=== PATIENT | female | born 2000 | race Caucasian/White ===

== ENCOUNTER 2023-03-31 04:29 | Emergency (ER) | payer BC, OTHER ==
--- OUTSIDE RECORDS SUMMARY | 2023-03-31 04:32 | XMS REPORT | Continuity of Care Document ---
:2000 Author Organization [facility] t Address [address] [place] [address] Care Team Providers Name Role Phone PCP, PATIENT DOES NOT HAVE A Primary Care Physician Unavaila Juan Bennett Attending Clinician Unavailable Amita Weinstein MD Attending Clinician AMITA WEINSTEIN Attending Clinician Unavailable Doctor Unassigned, Zuehl Attending Clinician Unavailable Payers Payer Name Policy Type Policy Number Effective Date Expiration Date S steve [employer] 6 [id number] 2018 [facility] t [employer] of 00:00:00 - [facility] Problems Condition Condition Condition Status Onset Resolution Last Treating Co mments Source Name Details Category Date Date Treatment Clinician Date Hx of Hx of Disease Active 2020-05 Univers menorrhagi menorrhagi 2-15 it y of a a 00:00: [address] Branch Presence Presence Disease Active 2020-05 Unive rs of 52 mg of 52 mg 2-15 ity of [place] t[place]rele[place]rel-relea 00 Me dical sing sing Branch intrauteri intrauteri ne device ne device (IUD) (IUD) [id number] Attention Problem Comm on deficit Spirit hyperactiv - [facility] type [id number] Generalize Problem Com mon d anxiety Spirit disorder - [facility] [id number] Swollen Problem Commo n tonsil Spirit - [facility] Allergies, Adverse Reactions, Alerts Allergy Allergy Status Severity Reaction(s) Onset Inactive Treating Comm ents Source Name Type Date Date Clinician AMOXICIL DRUG Active Low Rash Univers ANA-POT 06-27 ity of CLAVULAN 00:00: [place] ATE 00 Medical Branch Amoxicil Propensi Active Rash Was a Univer s ana-Pot ty to 06-27 young ity of Clavulan adverse 00:00: child [place] ate reaction 00 Medical s to Branch drug amoxicil amoxicil Active Unknown Commo n ana / ana / Spirit clavulan clavulan - [facility] ate ate [facility] Social History Social Habit Start Date Stop Date Quantity Comments Source History of Current Smoker [facility] Spi rit - Tobacco Use [facility] Sex Assigned At Common Sp jazzy - [facility] Exposure to Not sure University of SARS-CoV-2 [place] [facility] (event) Branch History SDOH University o f Alcohol Frequency [place] [facility] History SDOH University o f Alcohol Std [place] [facility] Drinks [facility] History SDIN University o f Alcohol Binge [place] [facility] Alcohol intake 2021-04-22 2021-04-22 Current drinker Unive rsity of 00:00:00 00:00:00 of alcohol [place] [facility] (finding) Branch Tobacco use and 2021-04-17 2021-04-17 Never used Universit y of exposure 00:00:00 00:00:00 [facility] Alcohol Comment 2021-04-17 2021-04-17 Monthly / Social Uni versity of 00:00:00 00:00:00 [facility] Smoking Status Start Date Stop Date Source Current Smoker 2023-03-04 00:00:00 [facility] t - [facility] Former smoker 2021-04-17 00:00:00 2021-04-17 00:00:00 Universi ty [facility] Medications Ordered Filled Start Stop Current Ordering Indication Dosage Frequency Signature Comments Components Source Medication Medication Date Date Medication? Clinician (SIG) Name Name Adderall XR Adderall XR 2022-05 No 1{capsu QD Adderall 15 MG 15 MG 1-15 le_in_t XR 15 MG 00:00: he_morn 00 ing} Adderall XR Adderall XR 2022-0 No 1{capsu QD Adderall 15 MG 15 MG 3-02 le_in_t XR 15 MG 00:00: he_morn 00 ing} Adderall XR Adderall XR 3-0 No 1{capsu QD Adderall 15 MG 15 MG 2-02 le_in_t XR 15 MG 00:00: he_morn 00 ing} Adderall XR Adderall XR 2021-1 No 1{capsu QD Adderall 15 MG 15 MG 0-13 le_in_t XR 15 MG 00:00: he_morn 00 ing} Adderall XR Adderall XR 2021-0 No 1{capsu QD Adderall 15 MG 15 MG 9-14 le_in_t XR 15 MG 00:00: he_morn 00 ing} Adderall XR Adderall XR 2021-0 No 1{capsu QD Adderall 15 MG 15 MG 8-20 le_in_t XR 15 MG 00:00: he_morn 00 ing} Adderall XR Adderall XR 2-0 No 1{capsu QD Adderall 15 MG 15 MG 7-13 le_in_t XR 15 MG 00:00: he_morn 00 ing} Adderall XR Adderall XR 2-0 No 1{capsu QD Adderall 15 MG 15 MG 6-07 le_in_t XR 15 MG 00:00: he_morn 00 ing} Adderall XR Adderall XR 2-0 No 1{capsu QD Adderall 15 MG 15 MG 6-07 le_in_t XR 15 MG 00:00: he_morn 00 ing} Adderall XR Adderall XR 2-0 No 1{capsu QD Adderall 15 MG 15 MG 6-07 le_in_t XR 15 MG 00:00: he_morn 00 ing} Adderall XR Adderall XR 2-0 No 1{capsu QD Adderall 15 MG 15 MG 6-07 le_in_t XR 15 MG 00:00: he_morn 00 ing} Adderall XR Adderall XR No 1{capsu QD Adderall 15 MG 15 MG 4-20 le_in_t XR 15 MG 00:00: he_morn 00 ing} Adderall XR Adderall XR No 1{capsu QD Adderall 15 MG 15 MG 4-20 le_in_t XR 15 MG 00:00: he_morn 00 ing} Adderall XR Adderall XR No 1{capsu QD Adderall 15 MG 15 MG 3-20 le_in_t XR 15 MG 00:00: he_morn 00 ing} Adderall XR Adderall XR No 1{capsu QD Adderall 15 MG 15 MG 2-11 le_in_t XR 15 MG 00:00: he_morn 00 ing} Adderall XR Adderall XR No 1{capsu QD Adderall 15 MG 15 MG 1-12 le_in_t XR 15 MG 00:00: he_morn 00 ing} Lamotrigine 2020-05- No Take by Un jason (LAMICTAL 2-10 12-10 mouth. ity of ODT) 100 mg 14:50: 00:00 [place] TbDL 27 :00 Medical Branch ESCITALOPRA 2020-05- No Take by Un jason M OXALATE 2-10 12-10 mouth. ity of (LEXAPRO 14:50: 00:00 [place] ORAL) 14 :00 Medical Branch Adderall XR Adderall XR 2020-05 No 1{capsu QD 10 MG 10 MG 2-03 le_in_t 00:00: he_morn 00 ing} Adderall XR Adderall XR 2020-05 No 1{capsu QD 10 MG 10 MG 1-03 le_in_t 00:00: he_morn 00 ing} ADDERALL XR 2020-05 Yes Univer s 10 mg 24 hr 1-03 ity of capsule 00:00: [place] 00 Medical Branch JUNE2020- No Univers 1.5/30, 21, 2-22 12-10 ity of 1.5-30 00:00: 00:00 [place] mg-mcg per 00 :00 Medical tablet Branch Melatonin Melatonin No 1{table QD Melatonin 10 MG 10 MG t_at_be 10 MG dtime_a s_neede d} Melatonin Melatonin No 1{table QD Melatonin 10 MG 10 MG t_at_be 10 MG dtime_a s_neede d} Melatonin Melatonin No 1{table QD Melatonin 10 MG 10 MG t_at_be 10 MG dtime_a s_neede d} Melatonin Melatonin No 1{table QD Melatonin 10 MG 10 MG t_at_be 10 MG dtime_a s_neede d} Melatonin Melatonin No 1{table QD 10 MG 10 MG t_at_be dtime_a s_neede d} Melatonin Melatonin No 1{table QD Melatonin 10 MG 10 MG t_at_be 10 MG dtime_a s_neede d} Melatonin Melatonin No 1{table QD Melatonin 10 MG 10 MG t_at_be 10 MG dtime_a s_neede d} Adderall XR Adderall XR No 1{capsu QD Adderall 15 MG 15 MG le_in_t XR 15 MG he_morn ing} Melatonin Melatonin No 1{table QD Melatonin 10 MG 10 MG t_at_be 10 MG dtime_a s_neede d} Vital Signs Vital Name Observation Time Observation Value Comments Source height 2022-09-15 11:10:00 67 [in_i] [facility] weight 2022-09-15 11:10:00 135 [lb_av] [facility] temperature 2022-09-15 11:10:00 97.8 [degF] [facility] bmi 2022-09-15 11:10:00 21.14 kg/m2 [facility] blood pressure 2022-09-15 11:10:00 126 mm[Hg] [facility] - systolic [facility] blood pressure 2022-09-15 11:10:00 84 mm[Hg] [facility] - diastolic [facility] height 2022-06-10 11:20:00 67 [in_i] [facility] weight 2022-06-10 11:20:00 130 [lb_av] [facility] bmi 2022-06-10 11:20:00 20.36 kg/m2 Common S pirit - [facility] blood pressure 2022-06-10 11:20:00 125 mm[Hg] [facility] - systolic [facility] blood pressure 2022-06-10 11:20:00 72 mm[Hg] [facility] - diastolic [facility] height 2022-01-20 08:00:00 67 [in_i] Common S pirit - [facility] weight 2022-01-20 08:00:00 130 [lb_av] [facility] S p[facility] - [facility] temperature 2022-01-20 08:00:00 98 [degF] Common S pirit - [facility] bmi 2022-01-20 08:00:00 20.36 kg/m2 Common S pirit - [facility] blood pressure 2022-01-20 08:00:00 128 mm[Hg] [facility] - systolic [facility] blood pressure 2022-01-20 08:00:00 78 mm[Hg] [facility] - diastolic [facility] height 2021-11-18 07:50:00 67 [in_i] Common S pirit - [facility] weight 2021-11-18 07:50:00 140 [lb_av] Common S pirit - [facility] temperature 2021-11-18 07:50:00 98 [degF] Common S pirit - [facility] bmi 2021-11-18 07:50:00 21.92 kg/m2 Common S pirit - [facility] blood pressure 2021-11-18 07:50:00 116 mm[Hg] [facility] - systolic [facility] blood pressure 2021-11-18 07:50:00 88 mm[Hg] [facility] - diastolic [facility] height 2021-10-13 13:30:00 67 [in_i] Common S pirit - [facility] weight 2021-10-13 13:30:00 139.2 [lb_av] [facility] - [facility] temperature 2021-10-13 13:30:00 99.0 [degF] Common S pirit [facility] bmi 2021-10-13 13:30:00 21.8 kg/m2 [facility] oximetry 2021-10-13 13:30:00 99 % Common S pirit [facility] respiratory rate 2021-10-13 13:30:00 18 /min Comm on Spirit - [facility] blood pressure 2021-10-13 13:30:00 114 mm[Hg] [facility] - systolic [facility] blood pressure 2021-10-13 13:30:00 75 mm[Hg] [facility] - diastolic [facility] height 2021-07-15 08:50:00 67 [in_i] [facility] weight 2021-07-15 08:50:00 135 [lb_av] [facility] temperature 2021-07-15 08:50:00 98 [degF] Common S pirit [facility] bmi 2021-07-15 08:50:00 21.14 kg/m2 Common S pirit [facility] blood pressure 2021-07-15 08:50:00 115 mm[Hg] [facility] - systolic [facility] blood pressure 2021-07-15 08:50:00 76 mm[Hg] [facility] - diastolic [facility] height 2021-05-12 14:50:00 67 [in_i] Common S pirit [facility] weight 2021-05-12 14:50:00 135 [lb_av] Common S pirit [facility] temperature 2021-05-12 14:50:00 98.8 [degF] Common S pirit [facility] bmi 2021-05-12 14:50:00 21.14 kg/m2 [facility] blood pressure 2021-05-12 14:50:00 118 mm[Hg] [facility] - systolic [facility] blood pressure 2021-05-12 14:50:00 79 mm[Hg] [facility] - diastolic [facility] Systolic blood 2021-04-17 20:45:00 119 mm[Hg] Univer sity of [facility] Diastolic blood 2021-04-17 20:45:00 78 mm[Hg] Unive rsity of [facility] Heart rate 2021-04-17 20:45:00 105 /min [facility] Body temperature 2021-04-17 20:45:00 36.72 Stephanie [facility] Res[facility] rate 2021-04-17 20:45:00 18 /min [facility] Body height 2021-04-17 20:45:00 170.2 cm [facility] Body weight 2021-04-17 20:45:00 61.236 kg [facility] BMI 2021-04-17 20:45:00 21.14 kg/m2 [facility] height 2021-03-11 14:40:00 67 [in_i] [facility] weight 2021-03-11 14:40:00 140 [lb_av] [facility] temperature 2021-03-11 14:40:00 97.9 [degF] [facility] bmi 2021-03-11 14:40:00 21.92 kg/m2 [facility] blood pressure 2021-03-11 14:40:00 118 mm[Hg] [facility] blood pressure 2021-03-11 14:40:00 86 mm[Hg] [facility] - diastolic [facility] Procedures Procedure Date / Time Performed Performing Clinician [facility] e PAP SMEAR-LIQUID 2021-04-17 21:30:00 Amita Weinstein [facility] Encounters Start End Encounter Admission Attending Care Care Encounter Source Date/Time Date/Time Type Type Clinicians Facility Department ID 2022-06-09 Outpatient CHARLOTTE [place] [facility] [id number] Common 13:09:00 Juan [id number] [facility] 2021-09-15 Outpatient CHARL[place]TE [place] [facility] [id number] Common 09:27:02 [facility] 2021-06-03 Outpatient [place], STLMLC STLMLC [id number] Common 13:33:52 Juan [facility] 2021-06-03 Outpatient [place], STLMLC STLMLC [id number] Common 12:53:17 Juan [id number] [facility] 2021-06-03 Outpatient [place], STLMLC STLMLC [id number] Common 12:23:27 Juan [id number] [facility] 2022-09-15 2022-09-15 OFFICE STLMLC STLMLC [id number] Co mmon 00:00:00 00:00:00 VISIT Spirit ESTAB PT - CHI LEVEL 3 [facility] 2022-06-10 2022-06-10 OFFICE STLMLC STLMLC [id number] Co mmon 00:00:00 00:00:00 VISIT Spirit ESTAB PT - CHI LEVEL 3 [facility] 2022-01-20 2022-01-20 OFFICE STLMLC STLMLC [id number] Co mmon 00:00:00 00:00:00 VISIT EST Spir it PT LEVEL 3 - [facility] 2021-11-18 2021-11-18 OFFICE STLMLC STLMLC [id number] Co mmon 00:00:00 00:00:00 VISIT EST Spir it PT LEVEL 3 - [facility] 2021-10-13 2021-10-13 PREV VISIT STLMLC STLMLC [id number] Common 00:00:00 00:00:00 EST AGE Spirit 18-39 - [facility] 2021-07-15 2021-07-15 OFFICE STLMLC STLMLC [id number] Co mmon 00:00:00 00:00:00 VISIT EST Spir it PT LEVEL 3 - [facility] 2021-05-12 2021-05-12 OFFICE STLMLC STLMLC [id number] Co mmon 00:00:00 00:00:00 VISIT Spirit ESTAB PT - CH[facility] LEVEL 4 [facility] 2021-04-17 2021-04-17 Office Amita Weinstein [facility] [id number] [facility] 14:30:00 15:29:24 Visit DANITZA [id number] i [id number] Mt dical [address] 2021-04-17 2021-04-17 Outpatient AMITA [facility] [id number] Univers 14:30:00 15:29:24 ity [facility] 2021-04-17 2021-04-17 Outpatient AMITA [facility] [id number] Univers 14:30:00 15:29:24 ity [facility] 2021-04-17 2021-04-17 Orders Doctor LANG [id number] Univers 00:00:00 00:00:00 Only Unassigned, MANUJ [id number] [facility] 4.2.7.2.686 [place] as [id number] [address] 2021-03-24 2021-03-24 Outpatient AMITA [facility] [id number] Univers 14:15:00 14:15:00 ity [facility] 2021-03-11 2021-03-11 OFFICE STLMLC STLMLC [id number] Co mmon 00:00:00 00:00:00 VISIT EST Spir it PT LEVEL 3 - [facility] 2020-12-10 2020-12-10 Outpatient STLMLC STLMLC [id number] Common 00:00:00 00:00:00 [facility] 2020-09-24 2020-09-24 Outpatient STLMLC STLMLC [id number] Common 00:00:00 00:00:00 [facility] 2020-08-25 2020-08-25 Outpatient STLMLC STLMLC [id number] Common 00:00:00 00:00:00 [facility] 2020-06-27 2020-06-27 Outpatient STLMLC STLMLC [id number] Common 00:00:00 00:00:00 [facility] 2020-05-28 2020-05-28 Outpatient STLMLC STLMLC [id number] Common 00:00:00 00:00:00 [facility] - [facility] Results Test Description Test Time Test Comments Results Result Comments Source Lipid Panel With LDL/HDL Ratio 2021-10-13 00:00:00 Test Item Value Reference Range Interpretation Comme nts Cholesterol, Total (test code 127 mg/dL See_Comment [Automated message] The system = 3-3) which generated this result transmitted ref erence range: 100-199 mg/dL. The reference range was not u sed to interpret this result as normal/abnormal. Triglycerides (test code = 40 mg/dL See_Comment [Automated message] The system 859-8) which generated this result transmitted ref erence range: 0-149 mg/dL. Th e reference range was not used to interpret this result as sourav l/abnormal. HDL Cholesterol (test code = 59 mg/dL See_Comment [Automated message] The system 2085-01) which generated this result transmitted ref erence range: >39 mg/dL. The refe rence range was not used to int erpret this result as sourav l/abnormal. UA/M w/rflx Culture, [id number] 00:00:00 Test Item Value Reference Range Interpretation Comments Specific [place] (test 1.016 1.005-1.030 code = 2965-2) pH (test code = 7.0 5.0-7.5 5803-2) Urine-Color (test code Yellow Yellow = 5778-6) Appearance (test code Clear Clear = 5767-9) WBC Esterase (test Negative Negative code = 5799-2) Protein (test code = Negative Negative/Trace 34263-7) Glucose (test code = Negative Negative 2349-9) Ketones (test code = Negative Negative 2514-8) Occult Blood (test Negative Negative code = 5794-3) Bilirubin (test code = Negative Negative 5770-3) Urobilinogen,Semi-Qn 0.2 mg/dL See_Comment [Autom ated message] (test code = 63034-0) The sy stem which generated this result transmitted ref erence range: 0.2-1.0 mg/dL. The reference r frank was not used to interpret this result as normal/abnor mal. Nitrite, Urine (test Negative Negative code = 5802-4) Microscopic See below: Examination (test code = 42524-5) Urinalysis Reflex (test code = UNLOINC) Hemoglobin [id number] 00:00:00 Test Item Value Reference Range Interpretation Comments Hemoglobin A1c (test 4.9 % See_Comment [Autom ated message] The code = 4548-4) system which generated this result tra nsmitted reference range : 4.8-5.6 %. The referenc e range was not used to interpret this result as normal/abnormal . Comp. Metabolic Panel (14) ([facility])2021-10-13 00:00:00 Test Item Value Reference Range Interpretation Comments Glucose (test code = 88 mg/dL See_Comment [Autom ated message] 8515-7) The system [employer] generated this result transmitted ref erence range: 65-99 mg /dL. The reference r frank was not used to interpret this result as normal/abnor mal. BUN (test code = 11 mg/dL See_Comment [Automated message] 3094-0) The system [employer] generated this result transmitted ref erence range: 6-20 mg/ dL. The reference r frank was not used to interpret this result as normal/abnor mal. Creatinine (test code 0.77 mg/dL See_Comment [Auto mated message] = 2160-0) The system [employer] generated this result transmitted ref erence range: 0.57-1.0 0 mg/dL. The refe rence range was not u sed to interpret this result as normal/abnor mal. BUN/Creatinine Ratio 14 9-23 (test code = 3097-3) Sodium (test code = 139 mmol/L See_Comment [Automa glo message] 5681-2) The system [employer] generated this result transmitted ref erence range: 134-144 mmol/L. The ref erence range was not u sed to interpret this result as normal/abnor mal. Potassium (test code = 4.7 mmol/L See_Comment [Aut omated message] 2753-3) The system [employer] generated this result transmitted ref erence range: 3.5-5.2 mmol/L. The ref erence range was not u sed to interpret this result as normal/abnor mal. Chloride (test code = 103 mmol/L See_Comment [Auto mated message] ) The system [facility] generated this result transmitted ref erence range: 96-106 m mol/L. The reference r frank was not used to interpret this result as normal/abnor mal. Carbon Dioxide, Total 22 mmol/L See_Comment [Auto mated message] (test code = 2028-01) The s tem which generated this result transmitted ref erence range: 20-29 mm ol/L. The reference r frank was not used to interpret this result as normal/abnor mal. Calcium (test code = 10.2 mg/dL See_Comment [Autom ated message] 44697-9) The system [facility] generated this result transmitted ref erence range: 8.7-10.2 mg/dL. The refe rence range was not u sed to interpret this result as normal/abnor mal. Protein, Total (test 7.1 g/dL See_Comment [Autom ated message] code = 2455-2) The system [facility] generated this result transmitted ref erence range: 6.0-8.5 g/dL. The reference r frank was not used to interpret this result as normal/abnor mal. Albumin (test code = 4.8 g/dL See_Comment [Autom ated message] 1751-7) The system [facility] generated this result transmitted ref erence range: 3.9-5.0 g/dL. The reference r frank was not used to interpret this result as normal/abnor mal. Globulin, Total (test 2.3 g/dL See_Comment [Auto mated message] code = 48872-9) The system [facility] generated this result transmitted ref erence range: 1.5-4.5 g/dL. The reference r frank was not used to interpret this result as normal/abnor mal. A/G Ratio (test code = 2.1 1.2-2.2 9-0) Bilirubin, Total (test 0.5 mg/dL See_Comment [Aut omated message] code = 1974-) The system [facility] generated this result transmitted ref erence range: 0.0-1.2 mg/dL. The reference r frank was not used to interpret this result as normal/abnor mal. Alkaline Phosphatase 43 IU/L See_Comment L [Autom ated message] (test code = 6768-6) The sys tem which generated this result transmitted ref erence range: 44-121 I U/L. The reference r frank was not used to interpret this result as normal/abnor mal. AST (SGOT) (test code 13 IU/L See_Comment [Auto mated message] = 1920-8) The system [facility] generated this result transmitted ref erence range: 0-40 IU/ L. The reference range was not used to int erpret this result as normal/abnormal . ALT (SGPT) (test code 11 IU/L See_Comment [Auto mated message] = 1742-6) The system whic h generated this result transmitted ref erence range: 0-32 IU/ L. The reference range was not used to int erpret this result as normal/abnormal . Uric Acid, [id number] 00:00:00 Test Item Value Reference Range Interpretation Comments Uric Acid (test 4.2 mg/dL See_Comment [Automated message] The code = 3084-1) system which generated this result tra nsmitted reference range : 2.6-6.2 mg/dL. The refe rence range was not u sed to interpret this result as normal/abnormal . CBC With Differential/[id number] 00:00:00 Test Item Value Reference Range Interpretation Comments WBC (test code = 8.4 x10E3/uL See_Comment [Automated 0490-2) message] The sy stem which generated this result transmitted reference range : 3.4-10.8 x10E3/ uL. The reference r frank was not used to interpret this result as normal/abnormal . RBC (test code = 4.64 x10E6/uL See_Comment [Automate d 789-8) message] The sy stem which generated this result transmitted reference range : 3.77-5.28 x10E6 /uL. The reference r frank was not used to interpret this result as normal/abnormal . Hemoglobin (test code 13.7 g/dL See_Comment [Auto mated = 958-7) message] The sy stem which generated this result transmitted reference range : 11.1-15.9 g/dL. The reference range was not used to interpret this result as normal/abnormal . Hematocrit (test code 41.1 % See_Comment [Auto mated = 4544-3) message] The sy stem which generated this result transmitted reference range : 34.0-46.6 %. Th e reference range was not used to interpret this result as normal/abnormal . MCV (test code = 89 fL See_Comment [Automated 787-2) message] The sy stem which generated this result transmitted reference range : 79-97 fL. The reference range was not used to interpret this result as normal/abnormal . MCH (test code = 29.5 pg See_Comment [Automated 785-6) message] The sy stem which generated this result transmitted reference range : 26.6-33.0 pg. T he reference range was not used to interpret this result as normal/abnormal . MCHC (test code = 33.3 g/dL See_Comment [Automate d 786-4) message] The sy stem which generated this result transmitted reference range : 31.5-35.7 g/dL. The reference range was not used to interpret this result as normal/abnormal . RDW (test code = 11.5 % See_Comment L [Automated 788-0) message] The sy stem which generated this result transmitted reference range : 11.7-15.4 %. Th e reference range was not used to interpret this result as normal/abnormal . Platelets (test code 253 x10E3/uL See_Comment [Autom ated = 777-3) message] The sy stem which generated this result transmitted reference range : 150-450 x10E3/u L. The reference r frank was not used to interpret this result as normal/abnormal . Neutrophils (test 54 % Not Estab. % code = 770-8) Lymphs (test code = 32 % Not Estab. % 736-9) Monocytes (test code 7 % Not Estab. % = 5905-5) Eos (test code = 6 % Not Estab. % 713-8) Basos (test code = 1 % Not Estab. % 706-2) Immature Cells (test code = UNLOINC) Neutrophils 4.5 x10E3/uL See_Comment [Automated (Absolute) (test code messag e] The system = 751-8) which generated this result transmitted reference range : 1.4-7.0 x10E3/u L. The reference r frank was not used to interpret this result as normal/abnormal . Lymphs (Absolute) 2.7 x10E3/uL See_Comment [Automate d (test code = 731-0) message] The system which generated this result transmitted reference range : 0.7-3.1 x10E3/u L. The reference r frank was not used to interpret this result as normal/abnormal . Monocytes(Absolute) 0.6 x10E3/uL See_Comment [Automa glo (test code = 742-7) message] The system which generated this result transmitted reference range : 0.1-0.9 x10E3/u L. The reference r frank was not used to interpret this result as normal/abnormal . Eos (Absolute) (test 0.5 x10E3/uL See_Comment H [Autom ated code = 711-2) message] The s ystem which generated this result transmitted reference range : 0.0-0.4 x10E3/u L. The reference r frank was not used to interpret this result as normal/abnormal . Baso (Absolute) (test 0.1 x10E3/uL See_Comment [Auto mated code = 704-7) message] The s ystem which generated this result transmitted reference range : 0.0-0.2 x10E3/u L. The reference r frank was not used to interpret this result as normal/abnormal . Immature Granulocytes 0 % Not Estab. % (test code = 49818-9) Immature Grans (Abs) 0.0 x10E3/uL See_Comment [Autom ated (test code = 94064-8) messag e] The system which generated this result transmitted reference range : 0.0-0.1 x10E3/u L. The reference r frank was not used to interpret this result as normal/abnormal . NRBC (test code = 51573-1) Hematology Comments: (test code = 87667-7) TSH reflex to [id number] 00:00:00 Test Item Value Reference Range Interpretation Comments TSH (test code = 0.756 uIU/mL See_Comment [Automated message] The 24608-4) system which ge nerated this result tra nsmitted reference range : 0.450-4.500 uIU /mL. The reference range was not used to interpr et this result as normal/abnormal .
--- NOTE | 2023-03-31 04:43 | ER ---
Nurse's Notes [facility] Name: Shobha Reaves Age: 22 yrs Sex: Female : 2000 Arrival Date: 03/31/2023 Time: 04:29 Bed Waiting Private MD: Diagnosis: Contact with and (suspected) exposure to meningococcus Presentation: 03/31 04:41 Chief complaint: Patient states: EXPOSURE TO PT WITH MENINGITIS. Coronavirus screen: At rv this time, the client does not indicate any symptoms associated with coronavirus-19. Ebola Screen: No symptoms or risks identified at this time. Initial Sepsis Screen: Does the patient meet any 2 criteria? No. Patient's initial sepsis screen is negative. Does the patient have a suspected source of infection? No. Patient's initial sepsis screen is negative. Risk Assessment: Do you want to hurt yourself or someone else? Patient reports no desire to harm self or others. Onset of symptoms was March 31, 2023. 04:41 Method Of Arrival: Ambulatory rv 04:41 Acuity: TRISHA 5 rv Triage Assessment: 04:41 General: Appears in no apparent distress. Behavior is calm, cooperative. Pain: Denies rv pain. Neuro: Level of Consciousness is awake, alert, obeys commands, Oriented to person, place, time, situation. Cardiovascular: Capillary refill < 3 seconds Patient's skin is warm and dry. Respiratory: Airway is patent Respiratory effort is even, unlabored. GI: No signs and/or symptoms were reported involving the gastrointestinal system. : No signs and/or symptoms were reported regarding the genitourinary system. Historical: - Allergies: 04:41 No Known Allergies; rv - PMHx: 04:41 None; rv - PSHx: 04:41 None; rv - Immunization history:: Adult Immunizations. - Social history:: Smoking status: Patient denies any tobacco usage or history of. - Family history:: not pertinent. Screenin:42 [facility] ED Fall Risk Assessment (Adult) History of falling in the last 3 months, rv including since admission No falls in past 3 months (0 pts) Score/Fall Risk Level 0 - 2 = Low Risk Oriented to surroundings, Maintained a safe environment, Educated pt \T\ family on fall prevention, incl call for assistance when getting out of bed. Abuse screen: Denies threats or abuse. Denies injuries from another. Nutritional screening: No deficits noted. Tuberculosis screening: No symptoms or risk factors identified. Vital Signs: 04:41 Pulse 88; Resp 18; Temp 98; Pulse Ox 99% ; rv ED Course: 04:35 Patient arrived in ED. rv 04:38 Sal Love MD is Attending Physician. sp4 04:41 Triage completed. rv 04:42 Arm band placed on right wrist. rv 04:42 No provider procedures requiring assistance completed. Patient did not have IV access rv during this emergency room visit. Administered Medications: 04:49 Drug: Ciprofloxacin PO 1 grams PO once Route: PO; rv 04:49 Follow up: Response: Medication administered at discharge. rv Medication: 04:42 VIS not applicable for this client. rv Outcome: 04:42 Discharge ordered by . sp4 04:43 Discharged to home ambulatory, rv 04:43 Condition: good 04:43 Discharge instructions given to patient, Instructed on discharge instructions, follow up and referral plans. Demonstrated understanding of instructions, follow-up care, 04:50 Patient left the ED. rv Signatures: Zan Londono, RN RN rv Sal Love MD MD sp4
--- NOTE | 2023-03-31 04:43 | EDPHYS ---
Physician Documentation [facility] Name: Shobha Reaves Age: 22 yrs Sex: Female : 2000 Arrival Date: 03/31/2023 Time: 04:29 Bed Waiting Private MD: ED Physician Sal Love HPI: 03/31 04:38 This 22 yrs old Female presents to ER via Unassigned with complaints of sp4 Exposure to patient with meningitis . 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 Patient desires prophylactic medication for meningitis. Historical: - Allergies: 04:41 No Known Allergies; rv - PMHx: 04:41 None; rv - PSHx: 04:41 None; rv - Immunization history:: Adult Immunizations. - Social history:: Smoking status: Patient denies any tobacco usage or history of. - Family history:: not pertinent. ROS: 04:38 Constitutional: Negative for fever, chills, and weight loss, sp4 04:38 All other systems are negative, Exam: 04:38 Constitutional: This is a well developed, well nourished patient who is awake, alert, sp4 and in no acute distress. Head/Face: Normocephalic, atraumatic. Eyes: Pupils equal round and reactive to light, extra-ocular motions intact. Lids and lashes normal. Conjunctiva and sclera are not injected. Cornea within normal limits. Periorbital areas with no swelling, redness, or edema. ENT: Nares patent. No nasal discharge, no septal abnormalities noted. Tympanic membranes are normal and external auditory canals are clear. Oropharynx with no redness, swelling, or masses, exudates, or evidence of obstruction, uvula midline. Mucous membranes moist. Neck: Trachea midline, no thyromegaly or masses palpated, and no cervical lymphadenopathy. Supple, full range of motion without nuchal rigidity, or vertebral point tenderness. Chest/axilla: Normal chest wall appearance and motion. Nontender with no deformity. No lesions are appreciated. Cardiovascular: Regular rate and rhythm with a normal S1 and S2. No gallops, murmurs, or rubs. Normal PMI, no JVD. No pulse deficits. Respiratory: Lungs have equal breath sounds bilaterally, clear to auscultation and percussion. No rales, rhonchi or wheezes noted. No increased work of breathing, no retractions or nasal flaring. Abdomen/GI: Soft, non-tender, with normal bowel sounds. No distension or tympany. No guarding or rebound. No evidence of tenderness throughout. Back: No spinal tenderness. No costovertebral tenderness. Skin: Warm, dry with normal turgor. Normal color with no rashes, no lesions, and no evidence of cellulitis. MS/ Extremity: Pulses equal, no cyanosis. Neurovascular intact. Full, normal range of motion. Neuro: Awake and alert, GCS 15, oriented to person, place, time, and situation. Cranial nerves II-XII grossly intact. Motor strength 5/5 in all extremities. Sensory grossly intact. Psych: Awake, alert, with orientation to person, place and time. Behavior, mood, and affect are within normal limits Vital Signs: 04:41 Pulse 88; Resp 18; Temp 98; Pulse Ox 99% ; rv MDM: 04:41 Patient medically screened. sp4 04:41 Differential Diagnosis altered mental status, sepsis, flu. Data reviewed: vital signs, sp4 nurses notes. ED course: Patient will be given 1 g ciprofloxacin p.o. for prophylaxis. No further intervention required based on CDC guideline. Administered Medications: 04:49 Drug: Ciprofloxacin PO 1 grams PO once Route: PO; rv 04:49 Follow up: Response: Medication administered at discharge. rv Disposition Summary: 03/31/23 04:42 Discharge Ordered Notes: Location: Home sp4 Problem: new sp4 Symptoms: have improved sp4 Condition: Stable sp4 Diagnosis - Contact with and (suspected) exposure to meningococcus sp4 Followup: sp4 - With: Private Physician - When: 7 - 10 days - Reason: Recheck today's complaints Discharge Instructions: - Discharge Summary Sheet sp4 - Contact Precautions, [id number] sp4 Forms: - Patient Portal Instructions sp4 Signatures: Zan Londono RN RN rv Sal Love MD MD sp4
[2023-03-31] MEDS ORDERED: CIPROFLOXACIN HCL 500 MG TAB ONE (04:58)
[2023-03-31 04:59] VITALS: TEMP 98; O2SAT 99
== END 2023-03-31 04:50 | disposition home or self-care (01) ==
LOC: ER 04:29
DX: Z20.811 Contact with and (suspected) exposure to meningococcus (principal)
CPT/HCPCS: 99283

== ENCOUNTER 2024-09-18 12:06 | Emergency (ER) | payer OTHER ==
--- OUTSIDE RECORDS SUMMARY | 2024-09-18 12:10 | XMS REPORT | Continuity of Care Document ---
Author Name Unknown Address [address] [facility] [place] [address] [facility] Address [address] [facility] [address] [place] [address] Care Team Providers Care Directory Assistance Operator Name Role Phone Pcp, Patient Does Not Have A Primary Care Physic tray Juan Israel Attending Clinician Unavailable ESTEBAN HENDERSON Attending Clinician Unavailable ESTEBAN HENDERSON Attending Clinician Unavailable IZABELLA HAYES Attending Clinician Unavailable Izabella Hayes NP Attending Clinician [phone] Esteban Henderson MD Attending Clinician Nurse, [facility] Attending Clinician Un available Amita Weinstein MD Attending Clinician [phone] AMITA WEINSTEIN Attending Clinician Unavailable Doctor Unassigned, Ingenio Attending Clinician U navailable Payers Payer Name Policy Type Policy Number Effective Date Expirati on Date Source [employer] [place] [id number] 2022 00:00:00 [employer] [facility] 6 [id number] 2022 00:00:00 [facility] Problems Condition Name Condition Details Condition Category Status Onset Date Resolution Date Last Treatment Date Treating Clinician Comments Source Hx of menorrhagi a Hx of menorrhagi a Disease Active 2020-05 00:00: 00 [facility] Presence of 52 mg levonorges trel-relea sing intrauteri ne device (IUD) Presence of 52 mg levonorges trel-relea sing intrauteri ne device (IUD) Disease Active 2020-05 00:00: 00 [facility] [id number] Attention deficit hyperactiv ity disorder (ADHD), combined type Problem [facility] [id number] Generalize d anxiety disorder Problem [facility] [id number] Overweight Problem Com [facility] [id number] Swollen tonsil Problem [facility] Allergies, Adverse Reactions, Alerts Allergy Name Allergy Type Status Severity Reaction(s) Onset Date Inactive Date Treating Clinician Comments Source Amoxicil ana-Pot Clavulan ate Drug Allergy Active Unknown - See comments 06-27 00:00: 00 Was a young child [facility] AMOXICIL ANA-POT CLAVULAN ATE DRUG Active Low Rash 06-27 00:00: 00 [facility] Amoxicil ana-Pot Clavulan ate Propensi ty to adverse reaction s to drug Active Rash 06-27 00:00: 00 Was a young child [facility] Social History Social Habit Start Date Stop Date Quantity Comments Source Sex Assigned At [facility] Exposure to SARS-CoV-2 (event) Not sure [facility] ASSERTION Not [facility] History SDOH Alcohol Frequency [facility] History SDOH Alcohol Std Drinks [facility] History SDOH Alcohol Binge [facility] Alcoholic beverage intake 2024-08-22 00:00:00 2024-08-22 00:00:00 Current drinker of alcohol (finding) [facility] History of Social function 2024-07-25 00:00:00 2024-07-25 00:00:00 [facility] Tobacco use and exposure 2024-07-12 00:00:00 2024-07-12 00:00:00 Smokeless tobacco non-user [facility] Alcohol intake 2021-04-22 00:00:00 2021-04-22 00:00:00 Current drinker of alcohol (finding) [facility] Alcohol Comment 2021-04-17 00:00:00 2021-04-17 00:00:00 Monthly / Social [facility] History of tobacco use 2019-08-22 00:00:00 Cigarette Smoker [facility] Smoking Status Start Date Stop Date Source Ex-smoker 2024-07-12 00:00:00 2024-07-12 00[facility]00[facility] Current Smoker 2023-12-23 00:00:00 [facility] Medications Ordered Medication Name Filled Medication Name Start Date Stop Date Current Medication? Ordering Clinician Indication Dosage Frequency Signature (SIG) Comments Components Source Adderall XR 15 MG Adderall XR 15 MG 09-17 00:00: 00 No 1{олегu le_in_t he_morn ing} QD Adderall XR 15 MG levonorgest reL (MIRENA) IUD 1 Device 07-25 21:30: 00 07-25 20:41 :00 No [id number] 1{devic e} 1 Device, Intrauteri ne, ONCE, 1 dose, On Tue07/25/24 at 1630, Routine [facility] amphetamine -dextroamph etamine 15 mg 24 hr capsule 07-25 15:00: 23 Yes TAKE 1 CAPSULE BY MOUTH DAILY IN THE MORNING [facility] miSOPROStoL 200 mcg tablet 07-12 00:00: 00 07-25 00:00 :00 No [id number] 200ug Take 1 tablet by mouth SEE-INSTRU CTIONS. Take one tab the night before and one tab the morning of procedure [facility] Lamotrigine (LAMICTAL ODT) 100 mg TbDL 2020-05 14:50: 27 04-17 00:00 :00 No Take by mouth. [facility] ESCITALOPRA M OXALATE (LEXAPRO ORAL) 2020-05 14:50: 14 04-17 00:00 :00 No Take by mouth. [facility] ADDERALL XR 10 mg 24 hr capsule 2020-05 00:00: 00 07-12 00:00 :00 No 15mg Take 15 mg by mouth in the morning. [facility] JUNEL 1.5/, 21, 1.5-30 mg-mcg per tablet 06-30 00:00: 00 04-17 00:00 :00 No [facility] Immunizations Ordered Immunization Name Filled Immunization Name Date Status Comments Source HPV9 2024-08-13 00:00:00 Completed [facility] HPV9 2024-07-12 00:00:00 Completed [facility] SARS-COV-2 COVID-19 MODERNA 12+ YRS VACCINE 2021-04-11 00:00:00 Completed SARS-COV-2 COVID-19 MODERNA VACCINE 2021-04-11 00:00:00 Completed [facility] SARS-COV-2 COVID-19 MODERNA 12+ YRS VACCINE 2020-12-08 00:00:00 Completed [facility] SARS-COV-2 COVID-19 MODERNA VACCINE 2020-12-08 00:00:00 Completed [facility] Meningococcal Polysaccharide (groups A, C, Y and W-135) conjugate vaccine (MCV4P) 2009-10-22 00:00:00 Completed [facility] TDAP 2009-10-22 00:00:00 Completed Meningococcal Polysaccharide (groups A, C, Y and W-135) conjugate vaccine (MCV4P) 2009-10-22 00:00:00 Completed [facility] TDAP 2009-10-22 00:00:00 Completed [facility] Varicella (varivax)(chicken pox) 2009-06-18 00:00:00 Completed Varicella (varivax)(chicken pox) 2009-06-18 00:00:00 Completed [facility] Vital Signs Vital Name Observation Time Observation Value Comments Leonora wilson Systolic blood pressure 2024-09-18 15:19:00 109 mm[Hg] [facility] Diastolic blood pressure 2024-09-18 15:19:00 76 mm[Hg] [facility] Heart rate 2024-09-18 15:19:00 102 /min Un[facility] Body temperature 2024-09-18 15:19:00 36.78 Stephanie [facility] Respiratory rate 2024-09-18 15:19:00 19 /min [facility] Body height 2024-09-18 15:19:00 170.2 cm [facility] Body weight 2024-09-18 15:19:00 68.04 kg [facility] BMI 2024-09-18 15:19:00 23.49 kg/m2 [facility] Oxygen saturation in Arterial blood by Pulse oximetry 2024-09-18 15:19:00 100 /min [facility] height 2024-08-28 13:30:00 67 [in_i] Commo n [facility] weight 2024-08-28 13:30:00 157 [lb_av] Comm on [facility] temperature 2024-08-28 13:30:00 98.3 [degF] Com mon [facility] bmi 2024-08-28 13:30:00 24.59 kg/m2 Comm on [facility] blood pressure systolic 2024-08-28 13:30:00 112 mm[Hg] [facility] blood pressure diastolic 2024-08-28 13:30:00 78 mm[Hg] [facility] Systolic blood pressure 2024-08-22 20:36:00 110 mm[Hg] [facility] Diastolic blood pressure 2024-08-22 20:36:00 73 mm[Hg] [facility] Heart rate 2024-08-22 20:36:00 97 /min Un[facility] Body temperature 2024-08-22 20:36:00 36.72 Stephanie [facility] Respiratory rate 2024-08-22 20:36:00 18 /min [facility] Body height 2024-08-22 20:36:00 170.2 cm Univ [facility] Body weight 2024-08-22 20:36:00 71.305 kg [facility] BMI 2024-08-22 20:36:00 24.62 kg/m2 [facility] Systolic blood pressure 2024-08-13 15:36:00 118 mm[Hg] [facility] Diastolic blood pressure 2024-08-13 15:36:00 79 mm[Hg] [facility] Heart rate 2024-08-13 15:36:00 85 /min Unive [facility] Body temperature 2024-08-13 15:36:00 37 Stephanie [facility] Respiratory rate 2024-08-13 15:36:00 18 /min [facility] Body weight 2024-08-13 15:36:00 72.122 kg Univ [facility] BMI 2024-08-13 15:36:00 24.90 kg/m2 [facility] Systolic blood pressure 2024-07-25 20:13:00 120 mm[Hg] [facility] Diastolic blood pressure 2024-07-25 20:13:00 77 mm[Hg] [facility] Heart rate 2024-07-25 20:13:00 97 /min Unive [facility] Body temperature 2024-07-25 20:13:00 36.67 Stephanie [facility] Respiratory rate 2024-07-25 20:13:00 18 /min [facility] Body height 2024-07-25 20:13:00 170.2 cm Univ [facility] Body weight 2024-07-25 20:13:00 71.396 kg Univ [facility] BMI 2024-07-25 20:13:00 24.65 kg/m2 [facility] weight 2024-07-12 19:55:00 72.666 kg Univ [facility] BMI 2024-07-12 19:55:00 25.09 kg/m2 [facility] Systolic blood pressure 2024-07-12 19:55:00 122 mm[Hg] [facility] Diastolic blood pressure 2024-07-12 19:55:00 81 mm[Hg] [facility] Heart rate 2024-07-12 19:55:00 87 /min [facility] Body temperature 2024-07-12 19:55:00 36.83 Stephanie [facility] Respiratory rate 2024-07-12 19:55:00 18 /min [facility] Body height 2024-07-12 19:55:00 170.2 cm [facility] height 2024-07-05 08:15:00 67 [in_i] Commo n [facility] weight 2024-07-05 08:15:00 155 [lb_av] Comm on [facility] bmi 2024-07-05 08:15:00 24.27 kg/m2 Comm on [facility] blood pressure systolic 2024-07-05 08:15:00 136 mm[Hg] [facility] blood pressure diastolic 2024-07-05 08:15:00 84 mm[Hg] [facility] height 2024-05-07 13:30:00 67 [in_i] Commo n [facility] weight 2024-05-07 13:30:00 155 [lb_av] Comm on [facility] temperature 2024-05-07 13:30:00 98 [degF] Comm on [facility] bmi 2024-05-07 13:30:00 24.27 kg/m2 Comm on [facility] blood pressure systolic 2024-05-07 13:30:00 126 mm[Hg] [facility] blood pressure diastolic 2024-05-07 13:30:00 78 mm[Hg] [facility] height 2024-02-24 08:15:00 67 [in_i] Commo n [facility] weight 2024-02-24 08:15:00 160 [lb_av] Comm on [facility] temperature 2024-02-24 08:15:00 97.4 [degF] Com mon [facility] bmi 2024-02-24 08:15:00 25.06 kg/m2 Comm on [facility] oximetry 2024-02-24 08:15:00 99 % Commo n [facility] respiratory rate 2024-02-24 08:15:00 18 /min Common [facility] blood pressure systolic 2024-02-24 08:15:00 122 mm[Hg] [facility] blood pressure diastolic 2024-02-24 08:15:00 70 mm[Hg] [facility] height 2023-12-28 08:00:00 67 [in_i] Commo n [facility] weight 2023-12-28 08:00:00 140 [lb_av] Comm on [facility] temperature 2023-12-28 08:00:00 98 [degF] Comm on [facility] bmi 2023-12-28 08:00:00 21.92 kg/m2 Comm on [facility] blood pressure systolic 2023-12-28 08:00:00 132 mm[Hg] [facility] blood pressure diastolic 2023-12-28 08:00:00 78 mm[Hg] [facility] height 2023-10-14 11:40:00 67 [in_i] Commo n [facility] weight 2023-10-14 11:40:00 145 [lb_av] Comm on [facility] temperature 2023-10-14 11:40:00 98 [degF] Comm on [facility] bmi 2023-10-14 11:40:00 22.71 kg/m2 Comm on [facility] blood pressure systolic 2023-10-14 11:40:00 128 mm[Hg] [facility] blood pressure diastolic 2023-10-14 11:40:00 80 mm[Hg] [facility] height 2023-09-07 10:40:00 67 [in_i] Commo n [facility] weight 2023-09-07 10:40:00 150 [lb_av] Comm on [facility] temperature 2023-09-07 10:40:00 98.8 [degF] Com mon [facility] bmi 2023-09-07 10:40:00 23.49 kg/m2 Comm on [facility] height 2023-06-01 11:10:00 67 [in_i] Commo n [facility] weight 2023-06-01 11:10:00 150 [lb_av] Comm on [facility] temperature 2023-06-01 11:10:00 98.8 [degF] Com mon [facility] bmi 2023-06-01 11:10:00 23.49 kg/m2 Comm on [facility] blood pressure systolic 2023-06-01 11:10:00 132 mm[Hg] [facility] blood pressure diastolic 2023-06-01 11:10:00 86 mm[Hg] [facility] height 2023-03-08 08:00:00 67 [in_i] Commo n [facility] weight 2023-03-08 08:00:00 158 [lb_av] Comm on [facility] temperature 2023-03-08 08:00:00 98 [degF] Comm on [facility] bmi 2023-03-08 08:00:00 24.74 kg/m2 Comm on [facility] blood pressure systolic 2023-03-08 08:00:00 126 mm[Hg] [facility] blood pressure diastolic 2023-03-08 08:00:00 76 mm[Hg] [facility] height 2023-01-06 10:00:00 67 [in_i] Commo n [facility] weight 2023-01-06 10:00:00 158.0 [lb_av] Co mmon [facility] temperature 2023-01-06 10:00:00 98.2 [degF] Com mon [facility] bmi 2023-01-06 10:00:00 24.74 kg/m2 Comm on [facility] oximetry 2023-01-06 10:00:00 99 % Commo n [facility] respiratory rate 2023-01-06 10:00:00 18 /min Common [facility] blood pressure systolic 2023-01-06 10:00:00 116 mm[Hg] Common [facility] blood pressure diastolic 2023-01-06 10:00:00 69 mm[Hg] Common [facility] height 2022-09-15 11:10:00 67 [in_i] Commo n [facility] weight 2022-09-15 11:10:00 135 [lb_av] Comm on [facility] temperature 2022-09-15 11:10:00 97.8 [degF] Com [facility] bmi 2022-09-15 11:10:00 21.14 kg/m2 Comm on [facility] blood pressure systolic 2022-09-15 11:10:00 126 mm[Hg] [facility] blood pressure diastolic 2022-09-15 11:10:00 84 mm[Hg] Common [facility] height 2022-06-10 11:20:00 67 [in_i] Commo n [facility] weight 2022-06-10 11:20:00 130 [lb_av] Comm on [facility] bmi 2022-06-10 11:20:00 20.36 kg/m2 Comm on [facility] blood pressure systolic 2022-06-10 11:20:00 125 mm[Hg] [facility] blood pressure diastolic 2022-06-10 11:20:00 72 mm[Hg] [facility] height 2022-01-20 08:00:00 67 [in_i] Commo n [facility] weight 2022-01-20 08:00:00 130 [lb_av] Comm on [facility] temperature 2022-01-20 08:00:00 98 [degF] Comm on [facility] bmi 2022-01-20 08:00:00 20.36 kg/m2 Comm on [facility] blood pressure systolic 2022-01-20 08:00:00 128 mm[Hg] [facility] blood pressure diastolic 2022-01-20 08:00:00 78 mm[Hg] [facility] height 2021-11-18 07:50:00 67 [in_i] Commo n [facility] weight 2021-11-18 07:50:00 140 [lb_av] Comm on [facility] temperature 2021-11-18 07:50:00 98 [degF] Comm on [facility] bmi 2021-11-18 07:50:00 21.92 kg/m2 Comm on [facility] blood pressure systolic 2021-11-18 07:50:00 116 mm[Hg] [facility] blood pressure diastolic 2021-11-18 07:50:00 88 mm[Hg] [facility] height 2021-10-13 13:30:00 67 [in_i] Commo n [facility] weight 2021-10-13 13:30:00 139.2 [lb_av] Co mmon [facility] temperature 2021-10-13 13:30:00 99.0 [degF] Com mon [facility] bmi 2021-10-13 13:30:00 21.8 kg/m2 Commo n [facility] oximetry 2021-10-13 13:30:00 99 % Commo n [facility] respiratory rate 2021-10-13 13:30:00 18 /min Common [facility] blood pressure systolic 2021-10-13 13:30:00 114 mm[Hg] [facility] blood pressure diastolic 2021-10-13 13:30:00 75 mm[Hg] [facility] height 2021-07-15 08:50:00 67 [in_i] Commo n [facility] weight 2021-07-15 08:50:00 135 [lb_av] Comm on [facility] temperature 2021-07-15 08:50:00 98 [degF] Comm on [facility] bmi 2021-07-15 08:50:00 21.14 kg/m2 Comm on [facility] blood pressure systolic 2021-07-15 08:50:00 115 mm[Hg] [facility] blood pressure diastolic 2021-07-15 08:50:00 76 mm[Hg] Common [facility] height 2021-05-12 14:50:00 67 [in_i] Commo n [facility] weight 2021-05-12 14:50:00 135 [lb_av] Comm on [facility] temperature 2021-05-12 14:50:00 98.8 [degF] Com mon [facility] bmi 2021-05-12 14:50:00 21.14 kg/m2 Comm on [facility] blood pressure systolic 2021-05-12 14:50:00 118 mm[Hg] [facility] blood pressure diastolic 2021-05-12 14:50:00 79 mm[Hg] Common [facility] Systolic blood pressure 2021-04-17 20:45:00 119 mm[Hg] [facility] Diastolic blood pressure 2021-04-17 20:45:00 78 mm[Hg] [place] [facility] Heart rate 2021-04-17 20:45:00 105 /min [facility] Body temperature 2021-04-17 20:45:00 36.72 Stephanie [facility] Respiratory rate 2021-04-17 20:45:00 18 /min [facility] Body height 2021-04-17 20:45:00 170.2 cm [facility] Body weight 2021-04-17 20:45:00 61.236 kg [facility] BMI 2021-04-17 20:45:00 21.14 kg/m2 [facility] height 2021-03-11 14:40:00 67 [in_i] Commo n [facility] weight 2021-03-11 14:40:00 140 [lb_av] Comm on [facility] temperature 2021-03-11 14:40:00 97.9 [degF] Com mon [facility] bmi 2021-03-11 14:40:00 21.92 kg/m2 Comm on [facility] blood pressure systolic 2021-03-11 14:40:00 118 mm[Hg] Common [facility] blood pressure diastolic 2021-03-11 14:40:00 86 mm[Hg] [facility] Procedures Procedure Date / Time Performed Performing Clinician Source GARDASIL 9 (HPV 9V) VACCINE 2024-08-13 15:42:46 Esteban Henderson [facility] GC & CHLAMYDIA AMPLIFIED ASSAY 2024-07-25 20:33:00 Esteban Henderson [facility] TRICHOMONAS AMPLIFIED ASSAY 2024-07-25 20:33:00 Esteban Henderson [facility] POCT TEST 2024-07-25 00:00:00 Esteban Henderson [facility] GARDASIL 9 (HPV 9V) VACCINE 2024-07-12 20:12:34 Esteban Henderson [facility] PAP SMEAR-LIQUID BASED-CP 2021-04-17 21:30:00 Tod Weinsteinn [facility] Encounters Start Date/Time End Date/Time Encounter Type Admission Type Attending [facility] Care Department Encounter ID Source 2024-02-22 10:28:00 Outpatient Israel, Juan STLMLC STLMLC [id number] [facility] 2024-02-06 14:23:00 Outpatient Israel, Juan STLMLC STLMLC [id number] [facility] 2023-12-27 11:49:00 Outpatient Israel, Juan STLMLC STLMLC [id number] [facility] 2023-10-13 11:10:00 Outpatient Israel, Juan STLMLC STLMLC [id number] [facility] 2023-09-06 10:46:00 Outpatient Israel, Juan STLMLC STLMLC [id number] [facility] 2023-09-02 16:14:00 Outpatient Israel, Juan STLMLC STLMLC [id number] [facility] 2023-05-30 11:05:00 Outpatient Israel, Juan STLMLC STLMLC [id number] [facility] 2022-06-09 13:09:00 Outpatient Israel, Juan STLMLC STLMLC [id number] [facility] 2021-09-15 09:27:02 Outpatient Israel, Juan STLMLC STLMLC [id number] [facility] 2021-06-03 13:33:52 Outpatient Israel, Juan STLMLC STLMLC [id number] [facility] 2021-06-03 12:53:17 Outpatient Israel, Juan STLMLC STLMLC [id number] [facility] 2021-06-03 12:23:27 Outpatient Israel, Juan STLMLC STLMLC [id number] [facility] 2025-07-15 10:45:00 2025-07-15 10:45:00 Outpatient R ESTEBAN HENDERSON VIEN [facility] [id number] [facility] 2025-01-14 10:00:00 2025-01-14 10:00:00 Outpatient R [facility] [id number] [facility] 2024-09-18 10:21:00 2024-09-18 11:17:00 Emergency X IZABELLA HAYES [facility] ERT [id number] [facility] 2024-09-18 10:21:00 2024-09-18 11:17:00 Emergency JustoIzabella koch [facility] [id number] [facility] 2024-08-28 00:00:00 2024-08-28 00:00:00 OFFICE VISIT ESTAB PT LEVEL 4 [facility] [id number] [facility] 2024-08-22 15:45:00 2024-08-22 15:52:27 Outpatient R ESTEBAN HENDERSON VIEN [facility] [id number] [facility] 2024-08-22 15:45:00 2024-08-22 15:52:27 Office Visit Esteban Henderson [facility] [id number] [facility] 2024-08-16 00:00:00 2024-08-16 00:00:00 ([facility]) [facility] [id number] [facility] 2024-08-13 10:00:00 2024-08-13 10:37:14 Nurse Visit Nurse, [facility] Esteban Henderson Nurse, [facility] [id number] [facility] 2024-08-13 10:00:00 2024-08-13 10:37:14 Outpatient [facility] [id number] [facility] 2024-07-25 15:00:00 2024-07-25 15:39:07 Office Visit Esteban Henderson [facility] [id number] [facility] 2024-07-25 15:00:00 2024-07-25 15:39:07 Outpatient R ESTEBAN HENDERSON [facility] [id number] [facility] 2024-07-12 14:00:00 2024-07-12 14:16:02 Outpatient R ESTEBAN [facility] [id number] [facility] 2024-07-12 14:00:00 2024-07-12 14:16:02 Office Visit Esteban Henderson [facility] [id number] [facility] 2024-07-05 00:00:00 2024-07-05 00:00:00 OFFICE VISIT ESTAB PT LEVEL 4 STLMLC STLMLC [id number] [facility] 2024-05-07 00:00:00 2024-05-07 00:00:00 OFFICE VISIT ESTAB PT LEVEL 4 STLMLC STLMLC [id number] [facility] 2024-04-26 00:00:00 2024-04-26 00:00:00 (WEB) STLMLC STLMLC [id number] [facility] 2024-04-21 00:00:00 2024-04-21 00:00:00 (WEB) STLMLC STLMLC [id number] [facility] 2024-02-24 00:00:00 2024-02-24 00:00:00 PREV VISIT EST AGE 18-39 STLMLC STLMLC [id number] [facility] 2024-02-13 00:00:00 2024-02-13 00:00:00 (TEL) STLMLC STLMLC [id number] [facility] 2024-02-06 00:00:00 2024-02-06 00:00:00 (TEL) STLMLC STLMLC [id number] [facility] 2023-12-28 00:00:00 2023-12-28 00:00:00 OFFICE VISIT ESTAB PT LEVEL 3 STLMLC STLMLC [id number] [facility] 2023-10-14 00:00:00 2023-10-14 00:00:00 OFFICE VISIT ESTAB PT LEVEL 4 STLMLC STLMLC [id number] [facility] 2023-09-07 00:00:00 2023-09-07 00:00:00 OFFICE VISIT ESTAB PT LEVEL 3 STLMLC STLMLC [id number] [facility] 2023-09-07 00:00:00 2023-09-07 00:00:00 (TEL) STLMLC STLMLC [id number] [facility] 2023-09-02 00:00:00 2023-09-02 00:00:00 (WEB) STLMLC STLMLC [id number] [facility] 2023-09-02 00:00:00 2023-09-02 00:00:00 (TEL) STLMLC STLMLC [id number] [facility] 2023-06-01 00:00:00 2023-06-01 00:00:00 OFFICE VISIT ESTAB PT LEVEL 3 STLMLC STLMLC [id number] [facility] 2023-05-04 00:00:00 2023-05-04 00:00:00 (WEB) STLMLC STLMLC [id number] [facility] 2023-03-08 00:00:00 2023-03-08 00:00:00 OFFICE VISIT ESTAB PT LEVEL 3 STLMLC STLMLC [id number] [facility] 2023-02-22 00:00:00 2023-02-22 00:00:00 (WEB) STLMLC STLMLC [id number] [facility] 2023-01-06 00:00:00 2023-01-06 00:00:00 PREV VISIT EST AGE 18-39 STLMLC STLMLC [id number] [facility] 2022-10-28 00:00:00 2022-10-28 00:00:00 (TEL) STLMLC STLMLC [id number] [facility] 2022-09-15 00:00:00 2022-09-15 00:00:00 OFFICE VISIT ESTAB PT LEVEL 3 STLMLC STLMLC [id number] [facility] 2022-06-10 00:00:00 2022-06-10 00:00:00 OFFICE VISIT ESTAB PT LEVEL 3 STLMLC STLMLC [id number] [facility] 2022-01-20 00:00:00 2022-01-20 00:00:00 OFFICE VISIT EST PT LEVEL 3 STLMLC STLMLC [id number] [facility] 2021-11-18 00:00:00 2021-11-18 00:00:00 OFFICE VISIT EST PT LEVEL 3 STLMLC STLMLC [id number] [facility] 2021-10-13 00:00:00 2021-10-13 00:00:00 PREV VISIT EST AGE 18-39 STLMLC STLMLC [id number] [facility] 2021-07-15 00:00:00 2021-07-15 00:00:00 OFFICE VISIT EST PT LEVEL 3 STLMLC STLMLC [id number] [facility] 2021-05-12 00:00:00 2021-05-12 00:00:00 OFFICE VISIT ESTAB PT LEVEL 4 STLMLC STLMLC [id number] [facility] 2021-04-17 14:30:00 2021-04-17 15:29:24 Office Visit Amita Weinstein [facility] [id number]..[id number] [facility] 2021-04-17 14:30:00 2021-04-17 15:29:24 Outpatient R AMITA [facility] [id number] [facility] 2021-04-17 14:30:00 2021-04-17 15:29:24 Outpatient R AMITA [facility] [id number] [facility] 2021-04-17 00:00:00 2021-04-17 00:00:00 Orders Only Doctor Unassigned, Ingenio [facility] [id number] [facility] 2021-03-24 14:15:00 2021-03-24 14:15:00 Outpatient R AMITA [facility] [id number] [facility] 2021-03-11 00:00:00 2021-03-11 00:00:00 OFFICE VISIT EST PT LEVEL 3 STLMLC STLMLC [id number] [facility] 2020-12-10 00:00:00 2020-12-10 00:00:00 Outpatient STLMLC STLMLC [id number] [facility] 2020-09-24 00:00:00 2020-09-24 00:00:00 Outpatient STLMLC STLMLC [id number] [facility] 2020-08-25 00:00:00 2020-08-25 00:00:00 Outpatient STLMLC STLMLC [id number] [facility] 2020-06-27 00:00:00 2020-06-27 00:00:00 Outpatient STLMLC STLMLC [id number] [facility] 2020-05-28 00:00:00 2020-05-28 00:00:00 Outpatient [facility] [id number] [facility] Results Test Description Test Time Test Comments Results [facility] [id number] [facility]:00:00* Test Item Value Reference Range Interpretation Comme nts NUCLEATED RBCS (test code = 35700-9) 0.0 /100 WBC'S See_Comment [Automated messa ge] The system which generated this result transmitted reference range: 0.0 /100 WBC'S. The reference range was not used to interpret this result as normal/abnormal. ABSOLUTE EOSINOPHILS (test code = 09638-2) 0.32 K/UL See_Comment [Automated messa ge] The system which generated this result transmitted reference range: 0.00-0.50 K/UL. The reference range was not used to interpret this result as normal/abnormal. ABSOLUTE LYMPHOCYTES (test code = 22763-1) 2.02 K/UL See_Comment [Automated messa ge] The system which generated this result transmitted reference range: 1.00-4.00 K/UL. The reference range was not used to interpret this result as normal/abnormal. ABSOLUTE MONOCYTES (test code = 36463-4) 0.59 K/UL See_Comment [Automated messa ge] The system which generated this result transmitted reference range: 0.20-1.00 K/UL. The reference range was not used to interpret this result as normal/abnormal. ABSOLUTE NEUTROPHILS (test code = 23294-0) 3.94 K/UL See_Comment [Automated messa ge] The system which generated this result transmitted reference range: 1.50-7.50 K/UL. The reference range was not used to interpret this result as normal/abnormal. BASOPHILS (test code = 48617-9) 0.6 % EOSINOPHILS (test code = 45297-3) 4.6 % HEMATOCRIT (test code = 14489-1) 40.5 % See_Comment [Automated messa ge] The system which generated this result transmitted reference range: 34.0-45.0 %. The reference range was not used to interpret this result as normal/abnormal. HEMOGLOBIN (test code = 718-7) 13.9 G/DL See_Comment [Automated messa ge] The system which generated this result transmitted reference range: 11.5-15.5 G/DL. The reference range was not used to interpret this result as normal/abnormal. LYMPHOCYTES (test code = 97974-6) 29.1 % MCH (test code = 45000-7) 31.0 PG See_Comment [Automated messa ge] The system which generated this result transmitted reference range: 25.0-33.0 PG. The reference range was not used to interpret this result as normal/abnormal. MCHC (test code = 79414-4) 34.3 G/DL See_Comment [Automated messa ge] The system which generated this result transmitted reference range: 31.0-36.0 G/DL. The reference range was not used to interpret this result as normal/abnormal. MCV (test code = 85857-5) 90.2 fL See_Comment [Automated messa ge] The system which generated this result transmitted reference range: 80.0-99.0 fL. The reference range was not used to interpret this result as normal/abnormal. MONOCYTES (test code = 22080-6) 8.5 % NEUTROPHILS (test code = 84558-1) 56.9 % PLATELET COUNT (test code = 13939-7) 268 K/UL See_Comment [Automated messa ge] The system which generated this result transmitted reference range: 130-400 K/UL. The reference range was not used to interpret this result as normal/abnormal. RBC (test code = 12177-9) 4.49 M/UL See_Comment [Automated messa ge] The system which generated this result transmitted reference range: 3.80-5.40 M/UL. The reference range was not used to interpret this result as normal/abnormal. RDW (test code = 56266-4) 11.5 % See_Comment [Automated messa ge] The system which generated this result transmitted reference range: 11.5-15.0 %. The reference range was not used to interpret this result as normal/abnormal. WBC (test code = 73963-6) 6.9 K/UL See_Comment [Automated messa ge] The system which generated this result transmitted reference range: 3.5-11.0 K/UL. The reference range was not used to interpret this result as normal/abnormal. Lipid Panel With LDL/HDL [id number] 00:00:00* Test Item Value Reference Range Interpretation Comme nts Cholesterol, Total (test code = 2093-3) 127 mg/dL See_Comment [Automated message] The system which generated this result transmitted reference range: 100-199 mg/dL. The reference range was not used to interpret this result as normal/abnormal. Triglycerides (test code = 2571-8) 40 mg/dL See_Comment [Automated [employer]] The system which generated this result transmitted reference range: 0-149 mg/dL. The reference range was not used to interpret this result as normal/abnormal. HDL Cholesterol (test code = 2085-9) 59 mg/dL See_Comment [Automated [employer]] The system which generated this result transmitted reference range: >39 mg/dL. The reference range was not used to interpret this result as normal/abnormal. Notes Date/Time Note Provider Source 2024-09-18 10:58:05 PT NOT PRESENT IN TREATMENT AREA, NOT ANSWERING CALL TO WAITING ROOM. Corby Ni RN [facility] 2024-09-18 10:18:57 Congestion, generalized body aches and neck pain that started this morning. No cough, chest pain, abdominal pain. T-max 101, patient taking Theraflu at home. HX: denies. Gabriella Estrada RN [facility]
[2024-09-18] MEDS ORDERED: MORPHINE 4 MG/ML SYR ONE ×2 (12:53→14:14)
[2024-09-18] MEDS ORDERED: ONDANSETRON 4 MG/2 ML VIAL ONE (12:53)
[2024-09-18] MEDS ORDERED: NA CHLORIDE 0.9% 1,000 ML ONE (12:54)
[2024-09-18 13:00] LABS: Absolute Eosinophils 0.1 K/uL (0-0.5); Absolute Lymphocytes (CBC) 1.4 K/uL (0.7-4.9); Absolute Monocytes 1.4 K/uL (0.1-1.3); Absolute Neutrophil 13.8 K/uL (1.8-8.0); Basophils % 0.2 % (0-1.3); Eosinophils % 0.6 % (0-4.4); Hematocrit 39.7 % (36.0-45.0); Hemoglobin 13.6 g/dL (12.0-15.0); Lymphocytes % 8.2 % (15.3-44.8); MCH 30.5 pg (27.0-35.0); MCHC 34.4 g/dL (32.0-36.0); MCV 88.6 fL (80-100); MPV 8.7 fL (7.6-11.3); Monocytes % 8.5 % (3.3-12.3); Neutrophils % 82.5 % (41.7-73.7); Platelets 244 thou/uL (152-406); RBC Red Blood Cell Count 4.48 M/uL (3.86-4.86); Red Cell Distribution Width 12.6 % (12.1-15.2)
[2024-09-18 13:16] LABS: Anion Gap 9.5 mEq/L (5.0-15.0); Potassium 3.5 mEq/L (3.5-5.1)
--- NOTE | 2024-09-18 13:57 | RAD REPORT ---
EXAM: CT Soft Tissue Neck W/Contr INDICATION: [facility] MAIN n/a fever, neck stiffness Bed Name: 20 TECHNIQUE: Helical CT examination of the neck with IV contrast. Sagittal and coronal reformations wer e generated. This exam was performed according to our departmental dose-optimization program, which includes automated exposure control, adjustment of the mA and/or kV according to patient size and/or use of iterative reconstruction technique. COMPARISON: None. FINDINGS: Mucosal spaces: Nasopharynx, oropharynx, oral cavity, larynx and hypopharynx are normal. No suspiciou s masses. Epiglottis is normal in configuration. True vocal cords cords are normally situated. Piriform sinuses are well-aerated. Lymph Nodes: Mildly prominent lymph nodes particularly at level 2 bilaterally not exceeding 9 mm in s hort axis, likely reactive. Salivary Glands: Unremarkable. Thyroid Gland: Small hypoattenuating nodules within the right thyroid lobe, largest measuring 7 mm, n ot well evaluated Included Intracranial Structures: Normal Included Orbits: Normal Paranasal Sinuses: Predominantly clear Tympanomastoid Cavities: Normal Vascular Structures: Normal Osseous Structures: No acute osseous abnormality. Included Lung Apices: Normal IMPRESSION: Mildly prominent, likely reactive, deep cervical lymph nodes. No suspicious masses or inflammatory changes. Small hypoattenuating nodules within the right thyroid lobe, not well assessed but likely benign. The se can be further evaluated on dedicated thyroid ultrasound, on an elective basis.
[2024-09-18] MEDS ORDERED: NA CHLORIDE 0.9% 500 ML ONE (14:59)
--- NOTE | 2024-09-18 16:05 | RAD REPORT ---
EXAMINATION: Head Brain Wo Cont CLINICAL INDICATION: Female, 24 years old.elevated opening pressure on LP TECHNIQUE: Axial CT images from the skull base to the vertex without intravenous contrast. Coronal an d sagittal reformatted images were created from the data set. One or more of the following dose reduction techniques were used: Automated exposure control, adjustment of the mA and/or kV according to patient size, and/or iterative reconstruction. Unless otherwise specified, incidental findings do not require dedicated imaging follow-up. [id number]. COMPARISON: No prior exam. FINDINGS: INTRACRANIAL: No acute intracranial hemorrhage. No hydrocephalus. No mass effect or midline shift. No significant white matter disease. VASCULATURE: No visualized abnormalities in the arteries or dural venous sinuses. SCALP/SKULL: No calvarial fracture identified. No acute soft tissue abnormality. SINUSES: The visualized paranasal sinuses are mostly clear. No significant mastoid fluid. IMPRESSION: No acute intracranial abnormality.
[2024-09-18 16:13] LABS: CSF Glucose 60 mg/dL (40-70)
--- NOTE | 2024-09-18 17:13 | ER ---
Nurse's Notes [facility] Name: Shobha Reaves Age: 24 yrs Sex: Female : 2000 Arrival Date: 09/18/2024 Time: 12:06 Bed 20 Private MD: Diagnosis: Fever, unspecified;Viral syndrome;Acute lymphadenitis of face, head and neck Presentation: 09/18 12:15 Chief complaint: Patient states: flu symptoms X 2 days, today my neck was killing me, iw my swabs at [place] were negative , fever 100.1 today. Coronavirus screen: Client presents with at least one sign or symptom that may indicate coronavirus-19. Ebola Screen: No symptoms or risks identified at this time. Initial Sepsis Screen: Does the patient meet any 2 criteria? No. Patient's initial sepsis screen is negative. Does the patient have a suspected source of infection? No. Patient's initial sepsis screen is negative. Risk Assessment: Do you want to hurt yourself or someone else? Patient reports no desire to harm self or others. 12:15 Method Of Arrival: Ambulatory iw 12:15 Acuity: TRISHA 3 iw 12:15 Onset of symptoms was September 16, 2024. 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 - Infectious Disease History:: Denies. - Social history:: Smoking status: Patient denies any tobacco usage or history of. - Family history:: not pertinent. - Hospitalizations: : No recent hospitalization is reported. Screenin:30 [facility] ED Fall Risk Assessment (Adult) History of falling in the last 3 months, kj2 including since admission No falls in past 3 months (0 pts) Confusion or Disorientation No (0 pts) Intoxicated or Sedated No (0 pts) Impaired Gait No (0 pts) Mobility Assist Device Used No (0 pt) Altered Elimination No (0 pt) Score/Fall Risk Level 0 - 2 = Low Risk Maintained a safe environment, Hourly rounding (assess needs \T\ fall precautionary measures) done. Abuse screen: Denies threats or abuse. Denies injuries from another. Nutritional screening: No deficits noted. Tuberculosis screening: No symptoms or risk factors identified. Assessment: 12:30 General: Appears in no apparent distress. Behavior is calm, cooperative. Pain: kj2 Complains of pain in back of neck Pain currently is 6 out of 10 on a pain scale. Neuro: Level of Consciousness is awake, Oriented to person, place, time, situation. Cardiovascular: Patient's skin is warm and dry. Respiratory: Airway is patent Respiratory effort is even, unlabored. GI: No signs and/or symptoms were reported involving the gastrointestinal system. : No signs and/or symptoms were reported regarding the genitourinary system. 13:30 Reassessment: Patient appears in no apparent distress at this time. Patient and/or kj2 family updated on plan of care and expected duration. Pain level reassessed. Patient is alert, oriented x 3, equal unlabored respirations, skin warm/dry/pink. 14:30 Reassessment: Patient appears in no apparent distress at this time. Patient and/or kj2 family updated on plan of care and expected duration. Pain level reassessed. Patient is alert, oriented x 3, equal unlabored respirations, skin warm/dry/pink. 15:30 Reassessment: Patient appears in no apparent distress at this time. Patient and/or kj2 family updated on plan of care and expected duration. Pain level reassessed. Patient is alert, oriented x 3, equal unlabored respirations, skin warm/dry/pink. 16:30 Reassessment: Patient appears in no apparent distress at this time. Patient and/or kj2 family updated on plan of care and expected duration. Pain level reassessed. Patient is alert, oriented x 3, equal unlabored respirations, skin warm/dry/pink. 17:32 Reassessment: Patient appears in no apparent distress at this time. Patient and/or kj2 family updated on plan of care and expected duration. Pain level reassessed. Patient is alert, oriented x 3, equal unlabored respirations, skin warm/dry/pink. Vital Signs: 12:15 BP 119 / 82; Pulse 97; Resp 16; Temp 98.3(O); Pulse Ox 99% on R/A; Weight 68.04 kg; iw Height 5 ft. 7 in. ; Pain 8/10; 12:20 Weight 68.04 kg; Height 5 ft. 4 in. ; iw 13:30 BP 95 / 62; Pulse 80; Resp 20; Pulse Ox 100% ; kj2 14:30 BP 98 / 62; Pulse 74; Resp 20; Pulse Ox 100% on R/A; kj2 15:30 BP 99 / 57; Pulse 68; Resp 20; Pulse Ox 100% on R/A; kj2 16:30 BP 98 / 64; Pulse 72; Resp 20; Pulse Ox 100% on R/A; kj2 17:33 BP 101 / 66; Pulse 76; Resp 20; Temp 98; Pulse Ox 100% on R/A; kj2 12:20 Body Mass Index 25.75 (68.04 kg, 162.56 cm) iw 12:15 Pain Scale: Adult iw ED Course: 12:09 Patient arrived in ED. al6 12:10 Pierce Mabry MD is Attending Physician. rn 12:16 Triage completed. iw 12:17 Arm band placed on. iw 12:30 Patient has correct armband on for positive identification. Bed in low position. Call kj2 light in reach. Provided Education on: call light. 12:36 Francheska Stewart, GOMEZ is Primary Nurse. kj2 12:45 Inserted saline lock: 20 gauge in left antecubital area, using aseptic technique. Blood kj2 collected. Flushed with 10 mL NS. 13:19 CT Soft Tissue Neck W/contr In Process Unspecified. EDMS 15:43 CT Head Brain wo Cont In Process Unspecified. EDMS 17:34 Assist provider with lumbar puncture: Set up LP tray. Performed by Pierce Mabry MD. kj2 17:35 IV discontinued, intact, bleeding controlled, No redness/swelling at site. Pressure kj2 dressing applied. Administered Medications: 13:01 Drug: NS 0.9% IV 1000 ml IV at 1000 ml once; to be given as a bolus over 60 minutes kj2 Route: IV; Rate: 1000 ml; Site: left antecubital; 14:15 Follow up: IV Status: Completed infusion; IV Intake: 1000ml kj2 13:01 Drug: morphine IVP or IV 4 mg IVP once over 4 mins Route: IVP; Infused Over: 4 mins; kj2 Site: left antecubital; 14:15 Follow up: Response: No adverse reaction kj2 13:01 Drug: Ondansetron IVP 4 mg IVP once; over 2 minutes Route: IVP; Site: left antecubital; kj2 14:15 Follow up: Response: No adverse reaction kj2 14:46 Drug: morphine IVP or IV 4 mg IVP once over 4 mins Route: IVP; Infused Over: 4 mins; kj2 Site: left antecubital; 17:31 Follow up: Response: No adverse reaction kj2 17:42 Drug: Clindamycin PO 300 mg PO once Route: PO; kj2 17:42 Follow up: Response: No adverse reaction kj2 Medication: 17:34 VIS not applicable for this client. kj2 Intake: 14:15 IV: 1000ml; Total: 1000ml. kj2 Outcome: 17:13 Discharge ordered by . rn 17:34 Discharged to home ambulatory, kj2 17:34 Condition: stable 17:34 Discharge instructions given to patient, friend, Instructed on discharge instructions, follow up and referral plans. Demonstrated understanding of instructions, follow-up care, 17:43 Patient left the ED. kj2 Signatures: Dispatcher [employer] EDMS Nydia Owens RN RN iw Pierce Mabry MD MD rn Jordan, Krystal, RN RN kj2 Arlen Qiu6 Corrections: (The following items were deleted from the chart) 12:54 12:15 BP 119 / 82; Pulse 97bpm; Resp 16bpm; Pulse Ox 99% RA; 68.04 kg; Height 5 ft. 7 iw in.; BMI: 23.4; Pain 8/10, Adult; iw
--- NOTE | 2024-09-18 17:14 | EDPHYS ---
Physician Documentation [facility] Name: Shobha Reaves Age: 24 yrs Sex: Female : 2000 Arrival Date: 09/18/2024 Time: 12:06 Bed 20 Private MD: ED Physician Pierce Mabry HPI: 09/18 13:10 This 24 yrs old Female presents to ER via Ambulatory with complaints of Flu Symptoms, rn neck pain. 13:10 The patient reports fever, not measured (subjective). Onset: The symptoms/episode rn began/occurred 2 day(s) ago. Patient reports fever, chills, myalgias with congestion and neck stiffness for 2 days. Went to [place] emergency room today and reports swabs including flu negative. No cough or shortness of breath. Patient reports pain with neck extension and flexion.. 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 - Infectious Disease History:: Denies. - Social history:: Smoking status: Patient denies any tobacco usage or history of. - Family history:: not pertinent. - Hospitalizations: : No recent hospitalization is reported. ROS: 13:10 Constitutional: Positive for fever and chills ENT: Positive for congestion and sore rn throat Neck: Positive for neck stiffness Cardiovascular: Negative for chest pain, palpitations, and edema, Respiratory: Negative for shortness of breath, cough, wheezing, and pleuritic chest pain, Abdomen/GI: Negative for abdominal pain, nausea, vomiting, diarrhea, and constipation, Back: Negative for injury and pain, : Negative for injury, bleeding, discharge, and swelling, MS/Extremity: Negative for injury and deformity, Skin: Negative for injury, rash, and discoloration, Neuro: Positive for headache Exam: 13:10 Constitutional: This is a well developed, well nourished patient who is awake, alert, rn appears in pain and tearful Head/Face: Normocephalic, atraumatic. Neck: Pain with neck extension and flexion. Not so much pain with lateral movement. Nontender cervical lymphadenopathy. No masses. Cardiovascular: Regular rate and rhythm. No pulse deficits. Respiratory: No increased work of breathing, no retractions or nasal flaring. Skin: No rash MS/ Extremity: Pulses equal, no cyanosis. Neurovascular intact. Full, normal range of motion. Equal circumference. Neuro: Awake and alert, GCS 15 Vital Signs: 12:15 BP 119 / 82; Pulse 97; Resp 16; Temp 98.3(O); Pulse Ox 99% on R/A; Weight 68.04 kg; iw Height 5 ft. 7 in. ; Pain 8/10; 12:20 Weight 68.04 kg; Height 5 ft. 4 in. ; iw 13:30 BP 95 / 62; Pulse 80; Resp 20; Pulse Ox 100% ; kj2 14:30 BP 98 / 62; Pulse 74; Resp 20; Pulse Ox 100% on R/A; kj2 15:30 BP 99 / 57; Pulse 68; Resp 20; Pulse Ox 100% on R/A; kj2 16:30 BP 98 / 64; Pulse 72; Resp 20; Pulse Ox 100% on R/A; kj2 17:33 BP 101 / 66; Pulse 76; Resp 20; Temp 98; Pulse Ox 100% on R/A; kj2 12:20 Body Mass Index 25.75 (68.04 kg, 162.56 cm) iw 12:15 Pain Scale: Adult iw Procedures: 15:18 Lumbar Puncture: Patient placed in left lateral decubitus position. Prepped with rn Betadine. Draped using sterile technique. Collected 4 ml's of clear fluid. Sample sent to lab. Puncture site dressed with band aid, Patient tolerated well. Opening pressure of 30. MDM: 12:10 Medical Screening Exam initiated rn 14:37 ED course: CT shows cervical reactive lymphadenopathy, deep cervical chain. Could rn explain patient's symptoms. Explained this to patient and patient still worried of possible meningitis, requests lumbar puncture. Patient will be consented for lumbar puncture and lumbar puncture performed.. 17:11 Differential diagnosis: viral Infection, bacterial infection, URI, meningitis. Data rn reviewed: vital signs, nurses notes, lab test result(s), radiologic studies, CT scan, and as a result, I will discharge patient. Counseling: I had a detailed discussion with the patient and/or guardian regarding the historical points, exam findings, and any diagnostic results supporting the discharge/admit diagnosis, lab results, radiology results, the need for outpatient follow up, to return to the emergency department if symptoms worsen or persist or if there are any questions or concerns that arise at home. Response to treatment: the patient's symptoms have markedly improved after treatment, and as a result, I will discharge patient. Special discussion: I discussed with the patient/guardian in detail that at this point there is no indication for admission to the hospital. It is understood, however, that if the symptoms persist or worsen the patient needs to return immediately for re-evaluation. Based on the history and exam findings, there is no indication for further emergent testing or inpatient evaluation. I discussed with the patient/guardian the need to see the neurologist for further evaluation of the symptoms. I discussed with the patient/guardian the need to see the primary care provider for further evaluation of the symptoms. ED course: Verbal report from lab shows 0 WBC, 0 RBC on csf cell count. Normal glucose and normal protein in CSF as well. No evidence of meningitis. Patient feels much better. Will discharge home with PCP follow-up and recommend neuro follow-up given opening pressure of 30. CT head images negative for signs of hydrocephalus or increased ICP. Will discharge home with return precautions. 09/18 12:28 Order name: CBC with Diff; Complete Time: 13:19 rn 09/18 12:28 Order name: Basic Metabolic Panel; Complete Time: 13:19 rn 09/18 15:18 Order name: Csf Culture rn 09/18 15:18 Order name: Fluid Cell Count,Body rn 09/18 15:18 Order name: Spinal Fluid Profile rn 09/18 12:28 Order name: CT Soft Tissue Neck W/contr; Complete Time: 14:01 rn 09/18 15:20 Order name: CT Head Brain wo Cont; Complete Time: 16:09 rn 09/18 12:28 Order name: IV Start; Complete Time: 13:02 rn 09/18 14:07 Order name: LP Consents; Complete Time: 14:46 rn 09/18 15:18 Order name: LP Setup; Complete Time: 15:53 rn Administered Medications: 13:01 Drug: NS 0.9% IV 1000 ml IV at 1000 ml once; to be given as a bolus over 60 minutes kj2 Route: IV; Rate: 1000 ml; Site: left antecubital; 14:15 Follow up: IV Status: Completed infusion; IV Intake: 1000ml kj2 13:01 Drug: morphine IVP or IV 4 mg IVP once over 4 mins Route: IVP; Infused Over: 4 mins; kj2 Site: left antecubital; 14:15 Follow up: Response: No adverse reaction kj2 13:01 Drug: Ondansetron IVP 4 mg IVP once; over 2 minutes Route: IVP; Site: left antecubital; kj2 14:15 Follow up: Response: No adverse reaction kj2 14:46 Drug: morphine IVP or IV 4 mg IVP once over 4 mins Route: IVP; Infused Over: 4 mins; kj2 Site: left antecubital; 17:31 Follow up: Response: No adverse reaction kj2 17:42 Drug: Clindamycin PO 300 mg PO once Route: PO; kj2 17:42 Follow up: Response: No adverse reaction kj2 Disposition Summary: 09/18/24 17:13 Discharge Ordered Notes: Location: Home rn Problem: new rn Symptoms: have improved rn Condition: Stable rn Diagnosis - Fever, unspecified rn - Viral syndrome rn - Acute lymphadenitis of face, head and neck rn Followup: rn - With: Private Physician - When: As needed - Reason: Recheck today's complaints, Re-evaluation by your physician Discharge Instructions: - Discharge Summary Sheet rn - Fever, Adult rn - Lumbar Puncture rn - Lymphadenopathy rn Forms: - Medication Reconciliation Form rn - Antibiotic furnace combustion tester - Prescription Opioid Use rn - Patient Portal Instructions rn - Leadership Thank You Letter rn Prescriptions: - Clindamycin HCl 300 mg Oral Capsule - take 1 capsule ORAL route every 6 hours for 10 days; 40 capsule; Refills: 0, rn Product Selection Permitted Signatures: Dispatcher [employer] [facility] Nydia Owens RN RN iw Nieto, Roman, MD MD rn Jordan, Krystal, RN RN kj2 Corrections: (The following items were deleted from the chart) 12:28 12:28 Soft Tissue Neck W/Contr+CT.RAD.BRZ ordered. [facility] 17:18 17:11 ED course: Verbal report from lab shows 0 WBC, 0 RBC on cell count. Normal rn glucose and normal protein in CSF as well. No evidence of meningitis. Patient feels much better. Will discharge home with PCP follow-up and recommend neuro follow-up given opening pressure of 30. CT head images negative for signs of hydrocephalus or increased ICP. Will discharge home with return precautions. rn
[2024-09-18 17:55] VITALS: O2SAT 100
[2024-09-18 17:56] LABS: Appearance CLEAR (CLEAR); Body Fluid Lymphocytes 0 %; Body Fluid Source CSF; Body Fluid WBC 0 /mm^3; Color of Supernate Not Xanthochromic (Not Xantho); Color of fluid Colorless (COLORLESS); Tube # #2
[2024-09-18 17:57] LABS: Fluid Total Cells Count 0
[2024-09-18 17:58] LABS: Appearance CLEAR (CLEAR); Body Fluid Lymphocytes 0 %; Body Fluid Source CSF; Body Fluid WBC 0 /mm^3; Color of Supernate Not Xanthochromic (Not Xantho); Color of fluid Colorless (COLORLESS); Fluid Total Cells Count 0; Fluid Total Volume 5.5 ml; Tube # #4
[2024-09-18 18:02] VITALS: BP 101/66; TEMP 98
== END 2024-09-18 17:43 | disposition home or self-care (01) ==
LOC: ER 12:06
DX: B34.9 Viral infection, unspecified (principal); L04.0 Acute lymphadenitis of face, head and neck
CPT/HCPCS: 96361; 87070; 85025; 80048; 36415; 89050 ×2; 84157; 82945; 70450; 70491; 62270; 96375; 96374; 99285; Q9967; J2405; J7030; J7040